=== PATIENT | male | born 1965 | race Caucasian/White ===

== ENCOUNTER → 2022-12-08 | Outpatient (CLI) | payer OTHER ==
--- NOTE | 2022-12-08 15:27 | XR ---
EXAMINATION TYPE: XR lumbosacral spine min 4V DATE OF EXAM: 12/08/2022 2:06 PM INDICATION: Patient age:Male; 57 years old; Reason for study: M54.50 DDD, Pain; PHH. COMPARISON: None TECHNIQUE: Frontal, lateral , bilateral oblique and coned in L5-S1 lateral views of the spine. FINDINGS: There are 5 lumbar type vertebral bodies identified. No evidence of any acute osseous patho logy. No evidence of loss of vertebral body height is seen. There is normal alignment of the lumbar vertebral bodies. Multilevel disc space narrowing with endplate sclerosis and anterior osteophytosis with facet arthropathy of the lower lumbar spine from L3 to S1. IMPRESSION: 1. No acute process. 2. Mild to moderate degenerative disc disease and facet arthropathy of the lower lumbar spine.
== END | disposition home or self-care (01) ==
LOC: RADXRMAIN 13:46
PROVIDERS: ATTEND Family Medicine
DX: M51.36 Other intervertebral disc degeneration, lumbar region (principal); M47.816 Spondylosis without myelopathy or radiculopathy, lumbar region
CPT/HCPCS: 72110